=== PATIENT | male | born 1955 | race Two or more races ===

== ENCOUNTER 2023-01-10 23:49 | Inpatient (IN) | payer MEDICARE ==
[~2023-01-10] VITALS: Ht 180.3 cm; Wt 90.7 kg
[2023-01-11] MEDS ORDERED: MAG HYDROX/AL HYDROX/SIMETH 30 ML UDC PO PRN (00:30)
[2023-01-11] MEDS ORDERED: MAGNESIUM HYDROXIDE 30 ML UDC PO PRN (00:30)
[2023-01-11] MEDS ORDERED: BLOOD SUGAR DIAGNOSTIC 1 EACH STRIP IN ONE (00:30)
[2023-01-11] MEDS ORDERED: DOCU100C36 PO (00:38)
[2023-01-11] MEDS ORDERED: CHOL200026 PO (00:38)
[2023-01-11] MEDS ORDERED: METF-442 PO (00:38)
[2023-01-11] MEDS ORDERED: GLIP10TA11 PO (00:38)
[2023-01-11] MEDS ORDERED: VALP250S4 PO (00:38)
[2023-01-11] MEDS ORDERED: PROP40TA7 PO (00:38)
[2023-01-11] MEDS ORDERED: GABA600T12 PO (00:38)
[2023-01-11] MEDS ORDERED: ATOR40TA PO (00:38)
[2023-01-11] MEDS ORDERED: OMEP20CA15 PO (00:38)
[2023-01-11] MEDS ORDERED: CLON0.5T4 PO (00:38)
[2023-01-11] MEDS: LORAZEPAM 0.5 MG TABLET PO PRN ×3 (02:43→23:30)
[2023-01-11 08:00] VITALS: BP 125/89; TEMP 97.9; O2SAT 97
[2023-01-11] MEDS: glipiZIDE 10 MG TABLET PO SCH (10:11)
[2023-01-11] MEDS: DOCUSATE SODIUM 100 MG CAPSULE PO SCH ×2 (10:13→16:39)
[2023-01-11] MEDS: PANTOPRAZOLE 40 MG TABLET.DR PO SCH (10:14)
[2023-01-11] MEDS: CHOLECALCIFEROL (VITAMIN D 3) 400 UNIT TABLET PO SCH (10:14)
[2023-01-11 10:31] LABS: CREATININE 0.8 mg/dL (0.6-1.3)
[2023-01-11 11:12] LABS: CALCIUM, SERUM 9.9 mg/dL (8.5-10.1); CREATININE 0.8 mg/dL (0.6-1.3)
[2023-01-11] MEDS: PROPRANOLOL HCL 40 MG TABLET PO SCH ×2 (12:44→16:39)
[2023-01-11] MEDS: DIVALPROEX SODIUM 500 MG TABLET.DR PO SCH ×2 (12:45→21:23)
[2023-01-11] MEDS: METFORMIN 500 MG TABLET PO SCH ×2 (12:45→16:39)
[2023-01-11 16:00] VITALS: BP 129/65; TEMP 97.9; O2SAT 96
[2023-01-11] MEDS: GABAPENTIN 300 MG CAPSULE PO SCH (16:39)
[2023-01-11 20:40] VITALS: BP 120/74; TEMP 97.3; O2SAT 97
[2023-01-11] MEDS: ATORVASTATIN 40 MG TABLET PO SCH (21:22)
[2023-01-11] MEDS: ZOLPIDEM TARTRATE 5 MG TABLET PO PRN (21:57)
[2023-01-12 06:53] LABS: ALBUMIN 3.7 g/dL (3.4-5.0); BILIRUBIN,TOTAL 0.7 mg/dL (0.2-1.0); CALCIUM, SERUM 9.9 mg/dL (8.5-10.1); CREATININE 0.7 mg/dL (0.6-1.3); POTASSIUM 3.9 mmol/L (3.5-5.1); TOTAL PROTEIN, SERUM 8.1 g/dL (6.4-8.2)
[2023-01-12 06:54] LABS: CHOLESTEROL 122 mg/dL (<200); HDL CHOLESTEROL 42 mg/dL (40-60); LDL 65 mg/dL (0-99); TRIGLYCERIDES 90 mg/dL (30-150)
[2023-01-12 08:00] VITALS: BP 143/93; TEMP 98; O2SAT 99
[2023-01-12] MEDS: DOCUSATE SODIUM 100 MG CAPSULE PO SCH ×2 (08:59→17:11)
[2023-01-12] MEDS: GABAPENTIN 300 MG CAPSULE PO SCH ×2 (08:59→17:12)
[2023-01-12] MEDS: METFORMIN 500 MG TABLET PO SCH ×2 (08:59→17:11)
[2023-01-12] MEDS: PANTOPRAZOLE 40 MG TABLET.DR PO SCH (08:59)
[2023-01-12] MEDS: PROPRANOLOL HCL 40 MG TABLET PO SCH ×2 (08:59→17:00)
[2023-01-12] MEDS: DIVALPROEX SODIUM 500 MG TABLET.DR PO SCH ×2 (09:00→20:59)
[2023-01-12] MEDS: CHOLECALCIFEROL (VITAMIN D 3) 400 UNIT TABLET PO SCH (09:00)
[2023-01-12] MEDS: glipiZIDE 10 MG TABLET PO SCH (09:01)
[2023-01-12] MEDS: LORAZEPAM 0.5 MG TABLET PO PRN ×2 (14:07→22:55)
[2023-01-12 14:38] LABS: APPEARANCE,URINE CLEAR (CLEAR); BILIRUBIN,URINE NEGATIVE (NEGATIVE); BLOOD, URINE NEGATIVE Ery/uL (NEGATIVE); COLOR,URINE YELLOW (YELLOW); KETONES,URINE TRACE mg/dL (NEGATIVE); LEUKOCYTE ESTERASE ,URINE NEGATIVE (NEGATIVE); NITRITE, URINE NEGATIVE (NEGATIVE); PROTEIN,URINE NEGATIVE (NEGATIVE); UGLUCOSE 1+ mg/dL (NEGATIVE); UROBILINOGEN,URINE 0.2 EU/dL (0.2)
[2023-01-12 14:59] LABS: ADD URINE CULTURE NO; BACTERIA,URINE Rare /HPF (None Seen); RBC,URINE NONE SEEN /HPF (0-2); SQUAMOUS EPITHELIAL CELL,UR Rare /HPF (None Seen)
[2023-01-12 15:00] LABS: YEAST,URINE Few /HPF (None Seen)
[2023-01-12 16:00] VITALS: BP 101/53; TEMP 97.9; O2SAT 99
[2023-01-12 20:00] VITALS: BP 125/64; TEMP 98.2; O2SAT 94
[2023-01-12] MEDS: ATORVASTATIN 40 MG TABLET PO SCH (20:59)
[2023-01-12] MEDS: ZOLPIDEM TARTRATE 5 MG TABLET PO PRN (21:02)
[2023-01-12] MEDS ORDERED: DEXTROSE 50%-WATER 50 ML DISP.SYRIN IV PRN (23:00)
[2023-01-13] MEDS: LORAZEPAM 0.5 MG TABLET PO PRN (06:30)
[2023-01-13] MEDS: BLOOD SUGAR DIAGNOSTIC 1 EACH STRIP VI SCH ×4 (07:30→21:45)
[2023-01-13 08:00] VITALS: BP 113/59; TEMP 97.9; O2SAT 96
[2023-01-13] MEDS: glipiZIDE 10 MG TABLET PO SCH (08:14)
[2023-01-13] MEDS: CHOLECALCIFEROL (VITAMIN D 3) 400 UNIT TABLET PO SCH (08:14)
[2023-01-13] MEDS: PANTOPRAZOLE 40 MG TABLET.DR PO SCH (08:14)
[2023-01-13] MEDS: GABAPENTIN 300 MG CAPSULE PO SCH ×2 (08:14→16:02)
[2023-01-13] MEDS: DOCUSATE SODIUM 100 MG CAPSULE PO SCH ×2 (08:14→16:02)
[2023-01-13] MEDS: DIVALPROEX SODIUM 500 MG TABLET.DR PO SCH ×2 (08:15→20:01)
[2023-01-13] MEDS: PROPRANOLOL HCL 40 MG TABLET PO SCH ×2 (08:15→16:02)
[2023-01-13] MEDS: METFORMIN 500 MG TABLET PO SCH ×2 (08:15→16:03)
[2023-01-13 11:08] LABS: THYROID STIMULATING HORMONE 0.229 uIU/mL (0.358-3.74)
[2023-01-13] MEDS: INSULIN REGULAR, HUMAN 100 UNIT/ML 3 ML VIAL SQ PRN ×2 (11:15→16:33)
[2023-01-13 16:00] VITALS: BP 132/62; TEMP 98.1; O2SAT 100
[2023-01-13 20:00] VITALS: BP 131/60; TEMP 98.3; O2SAT 95
[2023-01-13] MEDS: MIRTAZAPINE 15 MG TABLET PO SCH (21:44)
[2023-01-13] MEDS: ATORVASTATIN 40 MG TABLET PO SCH (21:44)
[2023-01-13] MEDS: ZOLPIDEM TARTRATE 5 MG TABLET PO PRN (21:45)
[2023-01-13] MEDS: *INSULIN REGULAR(HUMULIN R)HUM 100 UNIT/ML VIAL SQ PRN (21:54)
[2023-01-14] MEDS: INSULIN REGULAR, HUMAN 100 UNIT/ML 3 ML VIAL SQ PRN ×2 (07:58→17:27)
[2023-01-14] MEDS: BLOOD SUGAR DIAGNOSTIC 1 EACH STRIP VI SCH ×4 (07:59→21:38)
[2023-01-14 08:00] VITALS: BP 134/82; TEMP 97.9; O2SAT 96
[2023-01-14] MEDS: GABAPENTIN 300 MG CAPSULE PO SCH ×2 (08:37→17:33)
[2023-01-14] MEDS: PANTOPRAZOLE 40 MG TABLET.DR PO SCH (08:37)
[2023-01-14] MEDS: METFORMIN 500 MG TABLET PO SCH ×2 (08:37→17:34)
[2023-01-14] MEDS: DIVALPROEX SODIUM 500 MG TABLET.DR PO SCH ×2 (08:37→20:56)
[2023-01-14] MEDS: DOCUSATE SODIUM 100 MG CAPSULE PO SCH ×2 (08:37→17:34)
[2023-01-14] MEDS: CHOLECALCIFEROL (VITAMIN D 3) 400 UNIT TABLET PO SCH (08:37)
[2023-01-14] MEDS: PROPRANOLOL HCL 40 MG TABLET PO SCH ×2 (08:38→17:34)
[2023-01-14] MEDS: glipiZIDE 10 MG TABLET PO SCH (08:41)
[2023-01-14 10:00] VITALS: BP 134/82
[2023-01-14] MEDS: LORAZEPAM 0.5 MG TABLET PO PRN ×2 (10:21→16:33)
[2023-01-14 16:00] VITALS: BP 142/68; TEMP 97.8; O2SAT 100
[2023-01-14 20:00] VITALS: BP 135/70; TEMP 98.7; O2SAT 98
[2023-01-14] MEDS: MIRTAZAPINE 15 MG TABLET PO SCH (21:09)
[2023-01-14] MEDS: ATORVASTATIN 40 MG TABLET PO SCH (21:09)
[2023-01-14] MEDS: INSULIN GLARGINE, 100 UNIT/ML CARTRIDGE SQ SCH (21:39)
[2023-01-14] MEDS: ZOLPIDEM TARTRATE 5 MG TABLET PO PRN (22:53)
[2023-01-15] MEDS: LORAZEPAM 0.5 MG TABLET PO PRN ×3 (05:12→15:03)
[2023-01-15] MEDS: BLOOD SUGAR DIAGNOSTIC 1 EACH STRIP VI SCH ×4 (07:17→21:24)
[2023-01-15] MEDS: INSULIN REGULAR, HUMAN 100 UNIT/ML 3 ML VIAL SQ PRN ×4 (07:21→21:18)
[2023-01-15 08:00] VITALS: BP 127/70; TEMP 97.6; O2SAT 99
[2023-01-15] MEDS: DIVALPROEX SODIUM 500 MG TABLET.DR PO SCH ×2 (09:02→21:14)
[2023-01-15] MEDS: GABAPENTIN 300 MG CAPSULE PO SCH ×2 (09:02→17:08)
[2023-01-15] MEDS: METFORMIN 500 MG TABLET PO SCH ×2 (09:02→17:08)
[2023-01-15] MEDS: CHOLECALCIFEROL (VITAMIN D 3) 400 UNIT TABLET PO SCH (09:02)
[2023-01-15] MEDS: PANTOPRAZOLE 40 MG TABLET.DR PO SCH (09:03)
[2023-01-15] MEDS: PROPRANOLOL HCL 40 MG TABLET PO SCH ×2 (09:03→17:08)
[2023-01-15] MEDS: DOCUSATE SODIUM 100 MG CAPSULE PO SCH ×2 (09:03→17:08)
[2023-01-15 16:00] VITALS: BP 128/72; TEMP 98; O2SAT 96
[2023-01-15] MEDS: ATORVASTATIN 40 MG TABLET PO SCH (21:15)
[2023-01-15] MEDS: MIRTAZAPINE 15 MG TABLET PO SCH (21:15)
[2023-01-15] MEDS: INSULIN GLARGINE, 100 UNIT/ML CARTRIDGE SQ SCH (21:18)
[2023-01-15 21:43] VITALS: BP 131/60; TEMP 97.9; O2SAT 100
[2023-01-15] MEDS: ZOLPIDEM TARTRATE 5 MG TABLET PO PRN (22:24)
[2023-01-16] MEDS: LORAZEPAM 0.5 MG TABLET PO PRN ×4 (00:57→22:54)
[2023-01-16] MEDS: BLOOD SUGAR DIAGNOSTIC 1 EACH STRIP VI SCH ×4 (06:47→21:52)
[2023-01-16] MEDS: INSULIN REGULAR, HUMAN 100 UNIT/ML 3 ML VIAL SQ PRN ×3 (06:49→17:50)
[2023-01-16 08:00] VITALS: BP 150/82; TEMP 97.6; O2SAT 97
[2023-01-16] MEDS: METFORMIN 500 MG TABLET PO SCH ×2 (08:00→17:46)
[2023-01-16] MEDS: GABAPENTIN 300 MG CAPSULE PO SCH ×2 (08:00→17:45)
[2023-01-16] MEDS: CHOLECALCIFEROL (VITAMIN D 3) 400 UNIT TABLET PO SCH (08:00)
[2023-01-16] MEDS: PROPRANOLOL HCL 40 MG TABLET PO SCH ×2 (08:01→17:45)
[2023-01-16] MEDS: PANTOPRAZOLE 40 MG TABLET.DR PO SCH (08:01)
[2023-01-16] MEDS: DOCUSATE SODIUM 100 MG CAPSULE PO SCH ×2 (08:01→17:46)
[2023-01-16] MEDS: DIVALPROEX SODIUM 500 MG TABLET.DR PO SCH ×2 (08:01→21:06)
[2023-01-16] MEDS: INSULIN GLARGINE, 100 UNIT/ML CARTRIDGE SQ SCH ×2 (09:56→17:48)
[2023-01-16 16:00] VITALS: BP 149/67; TEMP 97.7; O2SAT 98
[2023-01-16] MEDS: ACETAMINOPHEN 325 MG TABLET PO PRN ×2 (16:22→19:39)
[2023-01-16 20:28] VITALS: BP 137/66; TEMP 98.2; O2SAT 98
[2023-01-16] MEDS: MIRTAZAPINE 15 MG TABLET PO SCH (21:07)
[2023-01-16] MEDS: ATORVASTATIN 40 MG TABLET PO SCH (21:07)
[2023-01-16] MEDS: *INSULIN REGULAR(HUMULIN R)HUM 100 UNIT/ML VIAL SQ PRN (21:57)
[2023-01-16] MEDS: ZOLPIDEM TARTRATE 5 MG TABLET PO PRN (22:22)
[2023-01-17] MEDS: ACETAMINOPHEN 325 MG TABLET PO PRN (03:02)
[2023-01-17] MEDS: BLOOD SUGAR DIAGNOSTIC 1 EACH STRIP VI SCH (07:57)
[2023-01-17 08:00] VITALS: BP 140/70; TEMP 98; O2SAT 97
[2023-01-17 08:05] VITALS: BP 140/70
[2023-01-17] MEDS: GABAPENTIN 300 MG CAPSULE PO SCH (08:05)
[2023-01-17] MEDS: PROPRANOLOL HCL 40 MG TABLET PO SCH (08:05)
[2023-01-17] MEDS: DIVALPROEX SODIUM 500 MG TABLET.DR PO SCH (08:05)
[2023-01-17] MEDS: CHOLECALCIFEROL (VITAMIN D 3) 400 UNIT TABLET PO SCH (08:05)
[2023-01-17] MEDS: DOCUSATE SODIUM 100 MG CAPSULE PO SCH (08:05)
[2023-01-17] MEDS: PANTOPRAZOLE 40 MG TABLET.DR PO SCH (08:05)
[2023-01-17] MEDS: METFORMIN 500 MG TABLET PO SCH (08:05)
[2023-01-17] MEDS: INSULIN GLARGINE, 100 UNIT/ML CARTRIDGE SQ SCH (08:07)
[2023-01-17] MEDS: LORAZEPAM 0.5 MG TABLET PO PRN (10:58)
== END 2023-01-17 12:00 | disposition home or self-care (01) | DRG 885 ==
LOC: GPS 23:49
PROVIDERS: ADMIT Psychiatry & Neurology Psychiatry; ATTEND Internal Medicine
DX: F31.63 Bipolar disorder, current episode mixed, severe, without psychotic features (principal); E11.65 Type 2 diabetes mellitus with hyperglycemia; F41.9 Anxiety disorder, unspecified; F14.14 Cocaine abuse with cocaine-induced mood disorder; E78.5 Hyperlipidemia, unspecified; N40.0 Benign prostatic hyperplasia without lower urinary tract symptoms; I10 Essential (primary) hypertension; Z86.73 Personal history of transient ischemic attack (TIA), and cerebral infarction without residual deficits; G25.81 Restless legs syndrome; R27.0 Ataxia, unspecified; Z91.81 History of falling; G31.84 Mild cognitive impairment of uncertain or unknown etiology
CPT/HCPCS: 36415; 70450-TC; 80048-TC; 80053-TC; 80061-TC; 80164-TC; 81001; 82565-TC; 82607-TC; 82962-TC; 84439-TC; 84443-TC; J1815